=== PATIENT | female | born 1950 | race Caucasian/White ===

== ENCOUNTER 2018-05-05 04:37 | Emergency (ER) | payer MEDICARE, OTHER ==
--- NOTE | 2018-05-05 05:07 | ER Document Report ---
Doctor's Note Notes: 05/05/18 05:05 I performed a quick triage evaluation the patient. Patient is a pleasant 68- year-old female presents with complaint of being weak and actually falling onto the floor because of weakness feeling unwell. Blood sugar was low at 65. Patient says that her blood sugars usually between 115 200 so whenever he gets below 80 she feels very weak like she did tonight. She takes Lantus at night. This dose has not recently changed. She is on metformin during the day but says her doctor recently decreased the metformin because her sugars were starting to get low. She also does a sliding scale insulin during the day. No recent fevers or infections. She denies hitting her head and she denies headache. She is on Plavix. She does have some bruising and pain along the left upper arm. She denies any hip pain. No abdominal pain. No chest pain. Avoid based on labs. Will check urine to make sure is no evidence of infection. Will keep an eye on her glucose to make sure it remains normalized. Her blood sugar did come up after eating peanut butter sandwich at home and this has made her feel much improved. Dictation of this chart was performed using voice recognition software; therefore, there may be some unintended grammatical errors.
[2018-05-05 05:34] LABS: ABSOLUTE EOSINOPHILS # (AUTO) 0.1 10^3/uL (0.0-0.6); ABSOLUTE MONOCYTES (AUTO) 1.1 10^3/uL (0.1-1.4); ABSOLUTE NEUT (AUTO) 17.1 10^3/uL (1.7-8.2); BASOPHILS % (AUTO) 0.1 % (0-2); EOSINOPHILS % (AUTO) 0.3 % (0-6); HEMATOCRIT 38.3 % (36.0-47.0); HEMOGLOBIN 12.5 g/dL (12.0-15.5); LYMPHOCYTES % (AUTO) 5.3 % (13-45); MEAN CORPUSCULAR HEMOGLOBIN 27.4 pg (27.0-33.4); MEAN CORPUSCULAR HGB CONC 32.8 g/dL (32.0-36.0); MEAN CORPUSCULAR VOLUME 84 fl (80-97); MONOCYTES % (AUTO) 5.8 % (3-13); PLATELET COUNT 272 10^3/uL (150-450); RED BLOOD COUNT 4.57 10^6/uL (3.72-5.28); RED CELL DISTRIBUTION WIDTH 15.8 % (11.5-14.0); SEGMENTED NEUTROPHILS % (AUTO) 88.5 % (42-78); TOTAL CELLS COUNTED % (AUTO) 100 %; WHITE BLOOD COUNT 19.3 10^3/uL (4.0-10.5)
[2018-05-05 05:42] LABS: ANION GAP 18 (5-19); BLOOD UREA NITROGEN 41 mg/dL (7-20); CALCIUM 9.7 mg/dL (8.4-10.2); CARBON DIOXIDE 25 mmol/L (22-30); CHLORIDE 103 mmol/L (98-107); GLUCOSE 179 mg/dL (75-110); POTASSIUM 4.1 mmol/L (3.6-5.0); SODIUM 146.2 mmol/L (137-145)
--- NOTE | 2018-05-05 06:25 | RADIOLOGY REPORT (SQ) ---
Left humerus two view on 05/05/2018 at 6:23 AM CLINICAL INDICATION: Left arm pain after fall COMPARISON: None FINDINGS: There is mild osteopenia. There are no fractures. Visualized joints are well aligned. Soft tissue swelling is noted in the distal upper arm. No bony abnormality is noted. IMPRESSION: No acute bony abnormality.
--- NOTE | 2018-05-05 07:32 | ER Document Report ---
ED General - General Chief Complaint: Low Blood Sugar Stated Complaint: BLOOD SUGAR ISSUE Time Seen by Provider: 05/05/18 05:04 Mode of Arrival: Wheelchair Information source: Patient, Parent TRAVEL OUTSIDE OF THE [place] IN LAST 30 DAYS: No - HPI Patient complains to provider of: Syncope Onset: Other - [age]-year-old female presents for evaluation of an episode of syncope this morning at which time she was attempting to get out of bed, she subsequently fainted falling in between her dresser and a bed, was unable to get up thereafter, she notes that she was concerned that her blood sugar was low at that time, so checked was 68. He presented for further evaluation, during that time she complained of feeling fatigued generalized shortness of breath which has been progressive over the last several months worse on exertion. She does have a significant history of stent placement in the past as well as what seems like general deconditioning according to her son who notes that she does not get out of a chair for more than a few steps at a time at this point. She denies any chest pain palpitations abdominal pain diarrhea constipation dysuria or other symptoms. She is continued to take all of her normal home medications as usual. She has never had any episodes in the past where she fainted. - Related Data Allergies/Adverse Reactions: No Known Allergies Allergy (Verified 05/05/18 07:22) Past Medical History - General Information source: Patient, Relative - Social History Smoking Status: Never Smoker Frequency of alcohol use: None Family History: CAD Patient has suicidal ideation: No Patient has homicidal ideation: No - Past Medical History Cardiac Medical History: Reports: Hx Hypercholesterolemia, Hx Hypertension Endocrine Medical History: Reports: Hx Diabetes Mellitus Type 2 Renal/ Medical History: Denies: Hx Peritoneal Dialysis Past Surgical History: Reports: Hx Cholecystectomy Review of Systems - Review of Systems -: Yes All other systems reviewed and negative Physical Exam - Vital signs Vitals: Resp Pulse Ox 26 H 92 05/05/18 04:45 05/05/18 04:45 - General General appearance: Other - Chronically ill In distress: None - HEENT Head: Normocephalic Eyes: Normal Conjunctiva: Normal Cornea: Normal Eyelashes: Normal Pupils: PERRL Nasal: Normal Mouth/Lips: Normal - Respiratory Respiratory status: Tachypnea Chest status: Nontender Breath sounds: Normal Chest palpation: Normal - Cardiovascular Rhythm: Bradycardia Heart sounds: Normal auscultation Murmur: No - Abdominal Inspection: Normal Distension: No distension Tenderness: Nontender - Back Back: Normal - Extremities General upper extremity: Normal inspection, Normal ROM General lower extremity: Normal inspection, Normal ROM - Neurological Neuro grossly intact: Yes Cognition: Normal Orientation: AAOx4 [place] Coma Scale Eye Opening: Spontaneous [place] Coma Scale Verbal: Oriented Jm Coma Scale Motor: Obeys Commands [place] Coma Scale Total: 15 - Psychological Associated symptoms: Normal affect Course - Re-evaluation Re-evalutation: 05/05/18 10:30 68-year-old female with past medical history significant for known CAD as well as hyperlipidemia hypertension and diabetes that presents for evaluation of syncope today when attempting to get out of bed earlier this morning. Thought that may be related to low blood sugar which time she checked it was in the 68 range. On evaluation the patient has an EKG which demonstrates what appears to be a junctional escape rhythm, her heart rate is 38. Immediately evaluated patient at the bedside, she is currently hemodynamically stable, her heart rate is in the low 70s. She does have a history of paroxysmal atrial fibrillation and is on both metoprolol as well as diltiazem. Did not take either of these this morning. Intermittently she does oscillate to lower her heart rate between 40 and 50. While evaluating patient with heart rate between 40 and 50 she remains asymptomatic. She does have modest shortness of breath currently on 2 L nasal cannula. Spoke to the hospitalist about potential admission here for monitoring and evaluation of potential syncope CHF. They declined at this time noting that we do not have on-call cardiology as her result would be concerning potentially for this patient to stay in house without any interventional list given her bradycardia. Believe this is reasonable at this time, we will proceed with consideration of transfer. Contacted on-call transfer line at [facility]. Will contact publicity manager, have discussed case with hospitalist who agrees to transfer and admission of this patient at this time, currently she does have recurrent bradycardia with a heart rate in the low 40s though she is not exhibiting symptoms while at rest, she has normal blood pressure. Given that she is got well appearance overall will defer external pacing or administration of vasopressor. We will plan for repeat EKG. Patient to be transferred, will be transferred by ALS to [facility], will plan for current cardiac monitoring. Patient transfer to [facility], currently hemodynamically stable at this time. To the care of Dr. WHITTINGTON. - Vital Signs Vital signs: Temp Pulse Resp BP Pulse Ox 97.9 F 18 139/67 H 100 05/05/18 11:01 05/05/18 11:01 05/05/18 11:01 05/05/18 11:01 - Laboratory Result Diagrams: 05/05/18 05:15 05/05/18 05:15 Laboratory results interpreted by me: 05/05/18 05/05/18 05/05/18 04:55 05:15 05:15 WBC 19.3 H RDW 15.8 H Seg Neutrophils % 88.5 H Lymphocytes % 5.3 L Absolute Neutrophils 17.1 H Sodium 146.2 H BUN 41 H Est GFR ( Amer) 52 L Est GFR (Non-Af Amer) 43 L Glucose 179 H POC Glucose 204 H Urine Protein Urine Glucose (UA) Urine Urobilinogen Ur Leukocyte Esterase 05/05/18 05/05/18 06:23 08:15 WBC RDW Seg Neutrophils % Lymphocytes % Absolute Neutrophils Sodium BUN Est GFR ( Amer) Est GFR (Non-Af Amer) Glucose POC Glucose 270 H Urine Protein 30 H Urine Glucose (UA) 50 H Urine Urobilinogen 2.0 H Ur Leukocyte Esterase LARGE H Critical Care Note - Critical Care Note Total time excluding time spent on procedures (mins): 35 Discharge - Discharge Clinical Impression: Bradycardia Syncope Qualifiers: Syncope type: unspecified Qualified Code(s): R55 - Syncope and collapse Condition: Serious Disposition: [facility]
[2018-05-05 07:40] LABS: CREATINE KINASE MB 1.29 ng/mL (<4.55); TROPONIN I 0.027 ng/mL
--- NOTE | 2018-05-05 08:23 | RADIOLOGY REPORT (SQ) ---
EXAM DESCRIPTION: CHEST 2 VIEWS COMPLETED DATE/TIME: 05/05/2018 7:35 am REASON FOR STUDY: concern for pulmonary edema COMPARISON: None. NUMBER OF VIEWS: Two view. TECHNIQUE: Frontal and lateral radiographic views of the chest acquired. LIMITATIONS: None. FINDINGS: LUNGS AND PLEURA: No opacities, masses or pneumothorax. No pleural effusion. MEDIASTINUM AND HILAR STRUCTURES: No masses. No contour abnormalities. HEART AND VASCULAR STRUCTURES: Heart enlarged without failure. Aorta normal for age. BONES: No acute findings. HARDWARE: None in the chest. OTHER: No other significant finding. IMPRESSION: CARDIAC ENLARGEMENT WITHOUT FAILURE. TECHNICAL DOCUMENTATION: JOB ID: [id number] [employer]- All Rights Reserved Reading location - IP/workstation name: [email or web address]
[2018-05-05 08:48] LABS: APPEARANCE,URINE CLOUDY; BILIRUBIN,URINE NEGATIVE (NEGATIVE); COLOR,URINE RED; GLUCOSE, URINE 50 mg/dL (NEGATIVE); KETONES,URINE NEGATIVE (NEGATIVE); LEUKOCYTE ESTERASE,URINE LARGE (NEGATIVE); NITRITE,URINE NEGATIVE (NEGATIVE); PROTEIN,URINE 30 mg/dL (NEGATIVE); URINE SPECIFIC GRAVITY 1.018
[2018-05-05 12:28] VITALS: BP 146/59
--- NOTE | 2018-05-05 13:05 | EKG REPORT ---
SEVERITY:- ABNORMAL ECG - ACCELERATED JUNCTIONAL ESCAPE RHYTHM : Confirmed by: Bobby Vasques MD 05-May-2018 13:04:42
--- NOTE | 2018-05-05 13:05 | EKG REPORT ---
SEVERITY:- ABNORMAL ECG - JUNCTIONAL ESCAPE RHYTHM : Confirmed by: Bobby Vasques MD 05-May-2018 13:04:54
== END 2018-05-05 12:10 | disposition short-term general hospital (02) ==
LOC: ER 04:37
DX: R00.1 Bradycardia, unspecified (principal); R55 Syncope and collapse; E11.649 Type 2 diabetes mellitus with hypoglycemia without coma; W06.XXXA Fall from bed, initial encounter; I10 Essential (primary) hypertension
CPT/HCPCS: 36415; 71046; 80048; 81001; 82550; 82553; 82962; 83880; 84484; 85025; 93005; 93010; 99285

== ENCOUNTER 2019-07-21 09:31 | Inpatient (IN) | payer MEDICARE, OTHER ==
[2019-07-21] MEDS ORDERED: ONDANSETRON HCL INJ/PF 4 MG/2 ML SDV IV ONE ×2 (09:35→11:06)
--- NOTE | 2019-07-21 09:37 | ER Document Report ---
ED Medical Screen (RME) - General Chief Complaint: Vomiting Stated Complaint: VOMITING Time Seen by Provider: 07/21/19 09:31 Mode of Arrival: Ambulatory Information source: Patient Notes: This 69-year-old female with history of diabetes and A. fib presents to the emergency department with complaints of vomiting. She reports symptoms started she felt better on Monday symptoms return Monday. Reports decreased p.o. intake. She also reports she had some upper abdominal pain earlier no pain today. Reports last Accu-Chek was 287 with no p.o. intake today.. I have greeted and performed a rapid initial assessment of this patient. A comprehensive ED assessment and evaluation of the patient, analysis of test results and completion of the medical decision making process will be conducted by additional ED providers. Dictation of this chart was performed using voice recognition software; therefore, there may be some unintended grammatical errors. TRAVEL OUTSIDE OF THE [place] IN LAST 30 DAYS: No - Related Data Allergies/Adverse Reactions: No Known Allergies Allergy (Verified 05/05/18 07:22) Home Medications: Eliquis Past Medical History - Social History Chew tobacco use (# tins/day): No Frequency of alcohol use: None Drug Abuse: None - Past Medical History Cardiac Medical History: Reports: Hx Hypercholesterolemia, Hx Hypertension Endocrine Medical History: Reports: Hx Diabetes Mellitus Type 2 Renal/ Medical History: Denies: Hx Peritoneal Dialysis Past Surgical History: Reports: Hx Cholecystectomy
[2019-07-21 10:43] LABS: VENOUS BLOOD BASE EXCESS -1.5 mmol/L; VENOUS BLOOD HCO3 21.4 mmol/L (20-32); VENOUS BLOOD PCO2 31.1 mmHg (35-63); VENOUS BLOOD PH 7.46 (7.30-7.42)
[2019-07-21 10:46] LABS: HEMATOCRIT 43.2 % (36.0-47.0); HEMOGLOBIN 14.2 g/dL (12.0-15.5); MEAN CORPUSCULAR HEMOGLOBIN 28.2 pg (27.0-33.4); MEAN CORPUSCULAR VOLUME 86 fl (80-97); PLATELET COUNT 262 10^3/uL (150-450); RED BLOOD COUNT 5.04 10^6/uL (3.72-5.28); RED CELL DISTRIBUTION WIDTH 14.5 % (11.5-14.0); WHITE BLOOD COUNT 12.7 10^3/uL (4.0-10.5)
[2019-07-21 11:04] LABS: ALBUMIN 4.6 g/dL (3.5-5.0); ALKALINE PHOSPHATASE 90 U/L (38-126); ASPARTATE AMINO TRANSFERASE 22 U/L (14-36); BILIRUBIN,DIRECT 0.3 mg/dL (0.0-0.4); BILIRUBIN,TOTAL 0.8 mg/dL (0.2-1.3); BLOOD UREA NITROGEN 24 mg/dL (7-20); CALCIUM 9.5 mg/dL (8.4-10.2); CARBON DIOXIDE 18 mmol/L (22-30); GLUCOSE 350 mg/dL (75-110); TOTAL PROTEIN 8.5 g/dL (6.3-8.2)
[2019-07-21 11:09] LABS: ANION GAP 26 (5-19); CHLORIDE 98 mmol/L (98-107)
--- NOTE | 2019-07-21 11:15 | EKG REPORT ---
SEVERITY:- ABNORMAL ECG - WANDERING PACEMAKER BORDERLINE LEFT AXIS DEVIATION NONSPECIFIC T ABNORMALITIES, DIFFUSE LEADS : Confirmed by: Melody Guido MD 21-Jul-2019 11:14:13
[2019-07-21 11:26] LABS: ABSOLUTE LYMPHOCYTES# (MANUAL) 0.5 10^3/uL (0.5-4.7); ABSOLUTE MONOCYTES # (MANUAL) 0.6 10^3/uL (0.1-1.4); BASOPHILS % (MANUAL) 0 % (0-2); EOSINOPHILS % (MANUAL) 0 % (0-6); LYMPHOCYTES % (MANUAL) 4 % (13-45); MONOCYTES % (MANUAL) 5 % (3-13); SEGMENTED NEUTROPHILS % (MAN) 91 % (42-78); TOTAL CELLS COUNTED 100
[2019-07-21 11:27] LABS: ANISOCYTOSIS SLIGHT; PLATELET COMMENT ADEQUATE
[2019-07-21] MEDS ORDERED: PROMETHAZINE HCL INJ 25 MG/1 ML VIAL IV ONE (12:11)
[2019-07-21] MEDS ORDERED: NORMAL SALINE 500 ML IV ONE (12:22)
--- NOTE | 2019-07-21 13:12 | RADIOLOGY REPORT (SQ) ---
EXAM DESCRIPTION: CT ABD/PELVIS WITH IV ONLY COMPLETED DATE/TIME: 07/21/2019 12:20 pm REASON FOR STUDY: EPIGASTRIC PAIN, VOMITING, H/O PANCREATITIS COMPARISON: None. TECHNIQUE: CT scan of the abdomen and pelvis performed using helical scanning technique with dynamic intravenous contrast injection. No oral contrast. Images reviewed with lung, soft tissue, and bone windows. Reconstructed coronal and sagittal MPR images reviewed. Delayed images for evaluation of the urinary system also acquired. All images stored on PACS. All CT scanners at this facility use dose modulation, iterative reconstruction, and/or weight based d osing when appropriate to reduce radiation dose to as low as reasonably achievable (ALARA). [facility]: Dose Right [facility]: CareDose [facility]: Dose Right [facility]: Teradose 4D [facility]: Zet Universe CONTRAST TYPE AND DOSE: contrast/concentration: Isovue 350.00 mg/ml; Total Contrast Delivered: 100.0 ml; Total Saline Delivered: 72.0 ml RENAL FUNCTION: Creatinine 1.25 RADIATION DOSE: CT Rad equipment meets quality standard of care and radiation dose reduction techniq ues were employed. CTDIvol: 19.9 - 20.8 mGy. DLP: 2261 mGy-cm.. LIMITATIONS: Motion artifact ne. FINDINGS: LOWER CHEST: No consolidation or pleural effusion. Coronary arteries calcifications are n oted. LIVER: Normal size. No masses. No dilated ducts. SPLEEN: Normal size. PANCREAS: There is mild soft tissue stranding in the region of the pancreatic head/ uncinate process. No significant calcifications. No adjacent peripancreatic fluid collections. Pancreatic duct not di lated. GALLBLADDER: Surgically absent. ADRENAL GLANDS: No significant masses or asymmetry. RIGHT KIDNEY AND URETER: No solid masses. No significant calcifications. No hydronephrosis or hyd roureter. LEFT KIDNEY AND URETER: No solid masses. No significant calcifications. No hydronephrosis or hydr oureter. 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 AORTA AND VESSELS: Atherosclerotic calcifications at the abdominal aorta and its branches. No abdomi nal aortic aneurysm. RETROPERITONEUM: No retroperitoneal adenopathy, hemorrhage or masses. BOWEL AND PERITONEAL CAVITY: No dilated bowel loops or inflammatory changes. No free fluid or free ai r. There is colonic diverticulosis with no CT evidence for acute diverticulitis. APPENDIX: Not visualized. PELVIS: The uterus is present. There is a 2.3 cm cystic lesion at the right adnexa and a 1.8 cm cyst ic lesion at the left adnexa. No free fluid. Partially distended bladder. ABDOMINAL WALL: Small fat containing umbilical hernia. Multiple surgical clips are noted within the right anterior abdominal wall. BONES: Degenerative changes at the spine. IMPRESSION: 1. Mild soft tissue stranding in the region of the pancreatic head/ uncinate process, ma y represent chronic change versus acute pancreatitis. Please correlate with lipase level. 2. Colonic diverticulosis. 3. 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 4. Cystic lesions at the bilateral adnexal regions. Nonemergent pelvic ultrasound recommended for fu rther characterisation. TECHNICAL DOCUMENTATION: JOB ID: [id number] Quality ID # [id number]: Final reports with documentation of one or more dose reduction techniques (e.g., Au tomated exposure control, adjustment of the mA and/or kV according to patient size, use of iterative reconstruction technique) 2010 [employer]- All Rights Reserved Reading location - IP/workstation name: [email or web address]
--- NOTE | 2019-07-21 14:31 | ER Document Report ---
Entered by ANA WELCH SCRIBE 07/21/19 1057 Acting as scribe for:DAVE EVANS IV, MD ED GI/ - General Chief Complaint: Vomiting Stated Complaint: VOMITING Time Seen by Provider: 07/21/19 09:31 Mode of Arrival: Ambulatory TRAVEL OUTSIDE OF THE [place] IN LAST 30 DAYS: No - HPI Notes: 69-year-old female with a history of pancreatitis presents complaining of nausea, vomiting, and epigastric pain x3 days. Patient's daughter is present in the room states that the symptoms she is having today are the exact same symptoms she had the last time she had pancreatitis. Patient states she feels the pain in her epigastrium as well as in her back. Patient states she is felt some chills but denies fever. Patient denies change in bowel movements, sick contacts. Patient states she had a stress test done approximately 1 week ago that was reported to be normal. Patient denies alcohol use or new medications. Patient has history of hypertension and has not been able to keep down any of her normal daily medications due to the nausea vomiting and pain. - Related Data Allergies/Adverse Reactions: Sulfa (Sulfonamide Antibiotics) Adverse Reaction (Intermediate, Verified 07/21/19 10:12) VOMITING Home Medications: Eliquis Past Medical History - General Information source: Patient, Relative - Social History Smoking Status: Never Smoker Cigarette use (# per day): No Chew tobacco use (# tins/day): No Frequency of alcohol use: None Drug Abuse: None Lives with: Family Family History: CAD Patient has suicidal ideation: No Patient has homicidal ideation: No - Past Medical History Cardiac Medical History: Reports: Hx Atrial Fibrillation, Hx Hypercholesterolemia, Hx Hypertension Endocrine Medical History: Reports: Hx Diabetes Mellitus Type 2 GI Medical History: Reports: Hx Gastroesophageal Reflux Disease, Hx Pancreatitis Past Surgical History: Reports: Hx Cardiac Catheterization - Stent, Hx Cholecystectomy Review of Systems - Review of Systems Constitutional: No symptoms reported EENT: No symptoms reported Cardiovascular: No symptoms reported Respiratory: No symptoms reported Gastrointestinal: See HPI, Abdominal pain, Nausea, Vomiting Genitourinary: No symptoms reported Female Genitourinary: No symptoms reported Musculoskeletal: No symptoms reported Skin: No symptoms reported Hematologic/Lymphatic: No symptoms reported Neurological/Psychological: No symptoms reported -: Yes All other systems reviewed and negative Physical Exam - Vital signs Vitals: Resp 20 07/21/19 09:43 - Notes Notes: Physical Exam: General: Alert, appears well. HEENT: Normocephalic. Atraumatic. PERRL. Extraocular movements intact. Oropharynx clear. Neck: Supple. Non-tender. Respiratory: No respiratory distress. Clear and equal breath sounds bilaterally. Cardiovascular: Regular rate and rhythm. Abdominal: Mild epigastric tenderness to palpation. no distension. Normal Bowel Sounds. Back: No gross abnormalities. Extremities: Moves all four extremities. Upper extremities: Normal inspection. Normal ROM. Lower extremities: Normal inspection. No edema. Normal ROM. Neurological: Normal cognition. AAOx4. Normal speech. Psychological: Normal affect. Normal Mood. Skin: Warm. Dry. Normal color. Course - Vital Signs Vital signs: Temp Pulse Resp BP Pulse Ox 98.2 F 120 H 17 119/70 97 07/21/19 14:00 07/21/19 09:47 07/21/19 14:59 07/21/19 15:00 07/21/19 14:59 - Laboratory Result Diagrams: 07/21/19 10:16 07/21/19 10:16 Laboratory results interpreted by me: 07/21/19 07/21/19 07/21/19 10:14 10:16 10:16 WBC 12.7 H RDW 14.5 H Seg Neuts % (Manual) 91 H Lymphocytes % (Manual) 4 L Abs Neuts (Manual) 11.6 H VBG pH VBG pCO2 Carbon Dioxide 18 L Anion Gap 26 H BUN 24 H Est GFR ( Amer) 52 L Est GFR (MDRD) Non-Af 43 L Glucose 350 H POC Glucose 340 H Total Protein 8.5 H 07/21/19 10:16 WBC RDW Seg Neuts % (Manual) Lymphocytes % (Manual) Abs Neuts (Manual) VBG pH 7.46 H VBG pCO2 31.1 L Carbon Dioxide Anion Gap BUN Est GFR ( Amer) Est GFR (MDRD) Non-Af Glucose POC Glucose Total Protein - Diagnostic Test Radiology reviewed: Reports reviewed - EKG Interpretation by Me Additional EKG results interpreted by me: 07/21/19 13:29 EKG performed on 07/21/2019 at 0956 hrs. was interpreted by this MD. Findings sinus rhythm, heart rate 98, P waves preceding QRS complexes, QRS complexes appear narrow, ST segments are nonspecific. Impression sinus rhythm with nonspecific ST segments when compared to EKG from 05/05/2018 morphology is grossly similar. - Consults DR. ROSENDO HARKINS Time consulted: 13:32 Reason for consultation: 07/21/19 13:32 PT WITH N/V, EPIGASTRIC PAIN, PANCREATIC INFLAMMATION ON CT Consulted provider: will come to ER Discharge - Discharge Clinical Impression: Acute pancreatitis Condition: Good Disposition: ADMITTED INPATIENT Admitting Provider: Maria (Hospitalist) I personally performed the services described in the documentation, reviewed and edited the documentation which was dictated to the scribe in my presence, and it accurately records my words and actions.
[2019-07-21] MEDS ORDERED: DEXTROSE 40% GEL 15 GM TUBE PO PRN ×2 (14:39)
[2019-07-21] MEDS ORDERED: GLUCAGON,HUMAN RECOMB 1 MG INJ IM PRN (14:39)
[2019-07-21] MEDS ORDERED: DEXTROSE 50%-WATER 25 GM/50 ML DISP.SYRIN IV PRN ×2 (14:39)
--- NOTE | 2019-07-21 14:39 | PDOC H&P ---
History of Present Illness History of Present Illness: TOBIAS DICKSON is a 69 year old female with a history of insulin-dependent diabetes, atrial fibrillation, and coronary artery disease who was in her usual state of health until this past , about 3 days ago, when she started to have some abdominal pain. She said that it was off and on. She started to get a little bit nauseated the next day and threw up a couple of times. She says she has had several loose stools. She has not had a fever that she knows of. She does not think she is been around anyone who is been sick. Her nausea and vomiting got worse today and so she decided to come in. She got 500 cc of IV fluids and antiemetics and she says she now feels better and her abdominal pain and nausea are gone. CT scan of the belly was done which showed some possible mild fat stranding around the head of the pancreas. Gallbladder surgically absent. No evidence of any stones or dilated ducts. She is being admitted for some IV fluids and observation. Past Medical History Cardiac Medical History: Reports: Atrial Fibrillation, Hyperlipidema, Hypertension Endocrine Medical History: Reports: Diabetes Mellitus Type 2 GI Medical History: Reports: Gastroesophageal Reflux Disease Past Surgical History Past Surgical History: Reports: Cardiac Catheterization - Stent, Cholecystectomy Social History Smoking Status: Never Smoker Electronic Cigarette use?: No Family History Family History: CAD Parental Family History Reviewed: Yes Children Family History Reviewed: Yes Sibling(s) Family History Reviewed.: Yes Medication/Allergy Allergies/Adverse Reactions: Sulfa (Sulfonamide Antibiotics) Adverse Reaction (Intermediate, Verified 07/21/19 10:12) VOMITING Review of Systems All systems: reviewed and no additional remarkable complaints except as stated - All systems were reviewed and were negative except as noted in the HPI Physical Exam Vital Signs: Temp Pulse Resp BP Pulse Ox 97.8 F 120 H 24 H 128/68 H 96 07/21/19 09:47 07/21/19 09:47 07/21/19 13:41 07/21/19 13:42 07/21/19 13:41 Intake & Output 07/20/19 07/21/19 07/22/19 06:59 06:59 06:59 Intake Total 500 Balance 500 Weight 110 kg General appearance: PRESENT: no acute distress, cooperative, disheveled, morbidly obese Head exam: PRESENT: atraumatic, normocephalic Eye exam: PRESENT: EOMI, PERRLA. ABSENT: conjunctival injection, nystagmus, scleral icterus Ear exam: PRESENT: normal external ear exam Mouth exam: PRESENT: moist, neck supple Teeth exam: PRESENT: poor dentation Throat exam: ABSENT: post pharyngeal erythema Neck exam: PRESENT: full ROM. ABSENT: carotid bruit, JVD, lymphadenopathy, meningismus, tenderness, thyromegaly Respiratory exam: PRESENT: clear to auscultation delia, symmetrical, unlabored. ABSENT: accessory muscle use, chest wall tenderness, crackles, prolonged expiratory phas, rhonchi, tachypnea, wheezes Cardiovascular exam: PRESENT: irregular rhythm Pulses: PRESENT: normal carotid pulses Vascular exam: PRESENT: normal capillary refill GI/Abdominal exam: PRESENT: normal bowel sounds, soft. ABSENT: distended, guarding, rebound, tenderness Extremities exam: ABSENT: clubbing, pedal edema Musculoskeletal exam: PRESENT: normal inspection. ABSENT: deformity Neurological exam: PRESENT: alert, awake, oriented to person, oriented to place, oriented to time, oriented to situation, CN II-XII grossly intact. ABSENT: motor sensory deficit Psychiatric exam: PRESENT: appropriate affect, normal mood Skin exam: PRESENT: dry, warm Results Laboratory Results: 07/21/19 10:16 07/21/19 10:16 07/21/19 07/21/19 07/21/19 10:16 10:16 10:16 WBC 12.7 H RBC 5.04 Hgb 14.2 Hct 43.2 MCV 86 MCH 28.2 MCHC 33.0 RDW 14.5 H Plt Count 262 Seg Neutrophils % Not Reportable VBG pH 7.46 H VBG pCO2 31.1 L VBG HCO3 21.4 VBG Base Excess -1.5 Sodium 142.4 Potassium 4.0 Chloride 98 Carbon Dioxide 18 L Anion Gap 26 H BUN 24 H Creatinine 1.25 Est GFR ( Amer) 52 L Glucose 350 H Calcium 9.5 Total Bilirubin 0.8 AST 22 Alkaline Phosphatase 90 Total Protein 8.5 H Albumin 4.6 Lipase 07/21/19 10:16 WBC RBC Hgb Hct MCV MCH MCHC RDW Plt Count Seg Neutrophils % VBG pH VBG pCO2 VBG HCO3 VBG Base Excess Sodium Potassium Chloride Carbon Dioxide Anion Gap BUN Creatinine Est GFR ( Amer) Glucose Calcium Total Bilirubin AST Alkaline Phosphatase Total Protein Albumin Lipase 197.6 07/21/19 07/21/19 10:16 12:30 Troponin I 0.052 0.084 Impressions: Abdomen/Pelvis CT 07/21/19 11:07 IMPRESSION: 1. Mild soft tissue stranding in the region of the pancreatic head/ uncinate process, may represent chronic change versus acute pancreatitis. Please correlate with lipase level. 2. Colonic diverticulosis. 3. 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 4. Cystic lesions at the bilateral adnexal regions. Nonemergent pelvic ultrasound recommended for further characterisation. Assessment and Plan - Diagnosis (1) Gastroenteritis Is this a current diagnosis for this admission?: Yes Plan: I am not convinced that this is a pancreatitis. Her lipase was less than 200. Her symptoms started 3 days ago, and the lipase typically rises within 4 to 8 hours, peaks around 24 hours, and can remain elevated for up to 10 days. Considering that her symptoms got worse today, if this was a pancreatitis, we would expect to see the lipase at least elevated above the upper limit of normal. However, hers is normal. I suspect that she has a gastroenteritis, especially since we gave her just a very little amount of IV fluids and some antiemetics and now she has no nausea or abdominal pain. We are going to give a little bit more IV fluids, and this afternoon we will start her on some clear liquids and advance her diet as tolerated. We will repeat a lipase in the [facility] just to see if there is any upward trend. (2) Dehydration Is this a current diagnosis for this admission?: Yes Plan: BUN to creatinine ratio is close to 20-1. We will continue IV fluids and encourage oral hydration. (3) Atrial fibrillation Qualifiers: Atrial fibrillation type: unspecified chronic Qualified Code(s): I48.20 - Chronic atrial fibrillation, unspecified; I48.2 - Chronic atrial fibrillation Is this a current diagnosis for this admission?: Yes Plan: She says she takes metoprolol and Eliquis at home. We will make sure to get those ordered for her here. (4) Insulin dependent diabetes mellitus Is this a current diagnosis for this admission?: Yes Plan: She says she uses Lantus and Humalog at home. We will make sure she is covered with a sliding scale here once we get her home dose of Lantus order will go ahead and give that to her tonight. (5) Coronary artery disease Qualifiers: Coronary Disease-Associated Artery/Lesion type: [place] artery [place] vs. transplanted heart: [place] heart Associated angina: without angina Qualified Code(s): I25.10 - Atherosclerotic heart disease of [place] coronary artery without angina pectoris Is this a current diagnosis for this admission?: Yes Plan: She said that she has had cardiac stents. We will get her home medications continued. We will repeat another troponin this evening. The second 1 was trending up but she is currently without any discomfort at all. No evidence of ischemia on EKG or telemetry. The elevation that we saw was probably from transient supply and demand mismatch associated with her dehydration. - Time Time Spent with patient: 35 or more minutes
[2019-07-21] MEDS: INSULIN LISPRO 100 UNIT/ML 3 ML VIAL SUBCUT SCH ×2 (16:28→21:35)
[2019-07-21] MEDS: NORMAL SALINE 1000 ML 1,000 ML IV PRN (17:23)
[2019-07-21] MEDS ORDERED: INSULIN GLARGINE,HUM.REC.ANLOG 1,000 UNIT/10 ML VIAL (PYX) SUBCUT PRN (21:24)
[2019-07-21] MEDS: INSULIN GLARGINE,HUM.REC.ANLOG 1,000 UNIT/10 ML VIAL SUBCUT SCH (21:35)
[2019-07-21] MEDS: PANTOPRAZOLE SODIUM 40 MG VIAL IV SCH (21:47)
[2019-07-21] MEDS: ATORVASTATIN CALCIUM 40 MG TABLET PO SCH (21:48)
[2019-07-21] MEDS: METOPROLOL TARTRATE 50 MG TABLET PO SCH (21:48)
[2019-07-21] MEDS ORDERED: LOSARTAN POTASSIUM 50 MG TABLET PO SCH (22:00)
[2019-07-22] MEDS: NORMAL SALINE 1000 ML 1,000 ML IV PRN ×3 (02:30→19:45)
[2019-07-22] MEDS: LEVOTHYROXINE SODIUM 0.05 MG TABLET PO SCH (06:05)
[2019-07-22 07:10] LABS: HEMATOCRIT 40.4 % (36.0-47.0); HEMOGLOBIN 13.2 g/dL (12.0-15.5); MEAN CORPUSCULAR HGB CONC 32.7 g/dL (32.0-36.0); MEAN CORPUSCULAR VOLUME 86 fl (80-97); PLATELET COUNT 208 10^3/uL (150-450); RED BLOOD COUNT 4.72 10^6/uL (3.72-5.28); RED CELL DISTRIBUTION WIDTH 14.7 % (11.5-14.0); WHITE BLOOD COUNT 11.9 10^3/uL (4.0-10.5)
[2019-07-22 07:19] LABS: ANION GAP 15 (5-19); BLOOD UREA NITROGEN 34 mg/dL (7-20); CALCIUM 8.6 mg/dL (8.4-10.2); CARBON DIOXIDE 23 mmol/L (22-30); CHLORIDE 107 mmol/L (98-107); GLUCOSE 93 mg/dL (75-110); POTASSIUM 4.1 mmol/L (3.6-5.0)
[2019-07-22] MEDS: INSULIN LISPRO 100 UNIT/ML 3 ML VIAL SUBCUT SCH ×4 (07:30→21:30)
[2019-07-22 07:33] LABS: CREATINE KINASE MB 2.55 ng/mL (<4.55); TROPONIN I 0.158 ng/mL
[2019-07-22] MEDS ORDERED: METFORMIN HCL 500 MG TABLET PO SCH (08:00)
[2019-07-22] MEDS: ONDANSETRON HCL INJ/PF 4 MG/2 ML SDV IV PRN ×2 (08:25→13:49)
[2019-07-22] MEDS: ASPIRIN 81 MG TABLET, ENT COATED PO SCH (09:29)
[2019-07-22] MEDS: CHOLECALCIFEROL (D3) 1,000 UNIT (25 MCG) TABLET PO SCH (09:30)
[2019-07-22] MEDS: MAGNESIUM OXIDE 400 MG TABLET PO SCH (09:30)
[2019-07-22] MEDS ORDERED: FUROSEMIDE 20 MG TABLET PO SCH (10:00)
[2019-07-22] MEDS ORDERED: METOCLOPRAMIDE HCL INJ/PF 10 MG/2 ML SDV IV PRN (10:01)
[2019-07-22] MEDS: PANTOPRAZOLE SODIUM 40 MG VIAL IV SCH ×2 (10:29→21:24)
[2019-07-22] MEDS: METOPROLOL TARTRATE 50 MG TABLET PO SCH ×2 (11:02→21:23)
[2019-07-22] MEDS: ESCITALOPRAM OXALATE 10 MG TABLET PO SCH (11:03)
[2019-07-22] MEDS: APIXABAN 5 MG TABLET PO SCH ×2 (11:03→17:01)
--- NOTE | 2019-07-22 14:50 | PDOC PROGRESS REPORT ---
Subjective Progress Note for:: 07/22/19 Subjective:: No adverse events overnight. Nausea had returned today but still no abdominal pain. No chest pain or shortness of breath. Creatinine went up despite IV fluids after she got contrast with a CT yesterday. Reason For Visit: NAUSEA/VOMITING/DEHYDRATION Physical Exam Vital Signs: Temp Pulse Resp BP Pulse Ox 97.4 F 76 17 162/65 H 100 07/22/19 07:52 07/22/19 07:52 07/22/19 07:52 07/22/19 07:52 07/22/19 07:52 Intake & Output 07/21/19 07/22/19 07/23/19 06:59 06:59 06:59 Intake Total 1909 1360 Output Total 0 Balance 1909 1360 Weight 96.9 kg General: No acute distress, disheveled, morbidly obese Respiratory exam: PRESENT: clear to auscultation delia, symmetrical, unlabored. ABSENT: accessory muscle use, chest wall tenderness, crackles, prolonged expiratory phase, rhonchi, tachypnea, wheezes Cardiovascular exam: PRESENT: irregular rhythm Pulses: PRESENT: normal carotid pulses Vascular exam: PRESENT: normal capillary refill GI/Abdominal exam: PRESENT: normal bowel sounds, soft. ABSENT: distended, guarding, rebound, tenderness Extremities exam: ABSENT: clubbing, pedal edema Musculoskeletal exam: PRESENT: normal inspection. ABSENT: deformity Neurological exam: PRESENT: alert, awake, oriented to person, oriented to place, oriented to time, oriented to situation Psychiatric exam: PRESENT: appropriate affect, normal mood Skin exam: PRESENT: dry, warm Results Laboratory Results: 07/22/19 06:25 07/22/19 06:25 07/22/19 07/22/19 07/22/19 06:25 06:25 06:25 WBC 11.9 H RBC 4.72 Hgb 13.2 Hct 40.4 MCV 86 MCH 28.0 MCHC 32.7 RDW 14.7 H Plt Count 208 Sodium 145.4 H Potassium 4.1 Chloride 107 Carbon Dioxide 23 Anion Gap 15 BUN 34 H Creatinine 2.05 H Est GFR ( Amer) 29 L Glucose 93 Calcium 8.6 Lipase 133.1 07/21/19 07/21/19 07/21/19 10:16 12:30 17:45 CK-MB (CK-2) Troponin I 0.052 0.084 0.172 07/22/19 06:25 CK-MB (CK-2) 2.55 Troponin I 0.158 Impressions: Abdomen/Pelvis CT 07/21/19 11:07 IMPRESSION: 1. Mild soft tissue stranding in the region of the pancreatic head/ uncinate process, may represent chronic change versus acute pancreatitis. Please correlate with lipase level. 2. Colonic diverticulosis. 3. 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 4. Cystic lesions at the bilateral adnexal regions. Nonemergent pelvic ultrasound recommended for further characterisation. Assessment and Plan - Diagnosis (1) Gastroenteritis Is this a current diagnosis for this admission?: Yes Plan: Continue with some IV fluids and antiemetics. Have added Reglan because she said the Zofran was not helping as much, and she is a diabetic and so Reglan may be of some benefit for her in the situation. No signs of obstruction on CT. Abdominal exam is benign. Lipase is even lower than it was yesterday. I do not think this is pancreatitis. (2) Dehydration Is this a current diagnosis for this admission?: Yes Plan: Resolving with IV fluids (3) Atrial fibrillation Qualifiers: Atrial fibrillation type: unspecified chronic Qualified Code(s): I48.20 - Chronic atrial fibrillation, unspecified; I48.2 - Chronic atrial fibrillation Is this a current diagnosis for this admission?: Yes Plan: She says she takes metoprolol and Eliquis at home. We will make sure to get those ordered for her here. (4) Insulin dependent diabetes mellitus Is this a current diagnosis for this admission?: Yes Plan: She says she uses Lantus and Humalog at home. We will make sure she is covered with a sliding scale here once we get her home dose of Lantus order will go ahead and give that to her tonight. (5) Coronary artery disease Qualifiers: Coronary Disease-Associated Artery/Lesion type: [place] artery [place] vs. transplanted heart: [place] heart Associated angina: without angina Qualified Code(s): I25.10 - Atherosclerotic heart disease of [place] coronary artery without angina pectoris Is this a current diagnosis for this admission?: Yes Plan: She said that she has had cardiac stents. We will get her home medications continued. We will repeat another troponin this evening. The second 1 was trending up but she is currently without any discomfort at all. No evidence of ischemia on EKG or telemetry. The elevation that we saw was probably from transient supply and demand mismatch associated with her dehydration. (6) Contrast dye induced nephropathy Is this a current diagnosis for this admission?: Yes Plan: She is already a little bit dehydrated her creatinine is up a little bit whenever she got a CT with contrast in the ER, and now her creatinine is elevated. We will continue IV fluids and will hold off on any nephrotoxic medications. - Time Time Spent with patient: 25-34 minutes
[2019-07-22] MEDS: METOCLOPRAMIDE HCL INJ/PF 10 MG/2 ML SDV IV PRN (17:01)
[2019-07-22] MEDS ORDERED: HYDRALAZINE HCL INJ/PF 20 MG/1 ML SDV IV PRN (21:00)
[2019-07-22] MEDS: ATORVASTATIN CALCIUM 40 MG TABLET PO SCH (21:23)
[2019-07-22] MEDS: INSULIN GLARGINE,HUM.REC.ANLOG 1,000 UNIT/10 ML VIAL SUBCUT SCH (21:31)
[2019-07-23] MEDS: NORMAL SALINE 1000 ML 1,000 ML IV PRN ×2 (04:25→13:16)
[2019-07-23] MEDS: LEVOTHYROXINE SODIUM 0.05 MG TABLET PO SCH (05:47)
[2019-07-23] MEDS: INSULIN LISPRO 100 UNIT/ML 3 ML VIAL SUBCUT SCH ×4 (09:32→22:29)
[2019-07-23] MEDS: METOPROLOL TARTRATE 50 MG TABLET PO SCH ×2 (09:33→21:18)
[2019-07-23] MEDS: METOCLOPRAMIDE HCL INJ/PF 10 MG/2 ML SDV IV PRN (09:33)
[2019-07-23] MEDS: ASPIRIN 81 MG TABLET, ENT COATED PO SCH (09:33)
[2019-07-23] MEDS: APIXABAN 5 MG TABLET PO SCH ×2 (09:33→17:11)
[2019-07-23] MEDS: ESCITALOPRAM OXALATE 10 MG TABLET PO SCH (09:33)
[2019-07-23] MEDS: PANTOPRAZOLE SODIUM 40 MG VIAL IV SCH ×2 (09:33→21:18)
[2019-07-23] MEDS: MAGNESIUM OXIDE 400 MG TABLET PO SCH (09:33)
[2019-07-23] MEDS: CHOLECALCIFEROL (D3) 1,000 UNIT (25 MCG) TABLET PO SCH (09:34)
[2019-07-23 15:17] LABS: ANION GAP 12 (5-19); BLOOD UREA NITROGEN 30 mg/dL (7-20); CALCIUM 7.7 mg/dL (8.4-10.2); CARBON DIOXIDE 22 mmol/L (22-30); CHLORIDE 106 mmol/L (98-107); GLUCOSE 195 mg/dL (75-110); POTASSIUM 3.8 mmol/L (3.6-5.0)
--- NOTE | 2019-07-23 16:00 | PDOC PROGRESS REPORT ---
Subjective Progress Note for:: 07/23/19 Subjective:: No adverse events overnight. No new complaints. Vital signs been stable. She says that her nausea is gone and she ate all her breakfast without any problems Reason For Visit: NAUSEA/VOMITING/DEHYDRATION Physical Exam Vital Signs: Temp Pulse Resp BP Pulse Ox 97.8 F 71 18 131/43 H 96 07/23/19 12:20 07/23/19 14:00 07/23/19 12:20 07/23/19 12:20 07/23/19 12:20 Intake & Output 07/22/19 07/23/19 07/24/19 06:59 06:59 06:59 Intake Total 1910 3822 1540 Output Total 0 0 Balance 0 3822 1540 Weight 96.9 kg 99.5 kg General: No acute distress, disheveled, morbidly obese Respiratory exam: PRESENT: clear to auscultation delia, symmetrical, unlabored. ABSENT: accessory muscle use, chest wall tenderness, crackles, prolonged expiratory phase, rhonchi, tachypnea, wheezes Cardiovascular exam: PRESENT: irregular rhythm Pulses: PRESENT: normal carotid pulses Vascular exam: PRESENT: normal capillary refill GI/Abdominal exam: PRESENT: normal bowel sounds, soft. ABSENT: distended, guard ing, rebound, tenderness Extremities exam: ABSENT: clubbing, pedal edema Musculoskeletal exam: PRESENT: normal inspection. ABSENT: deformity Neurological exam: PRESENT: alert, awake, oriented to person, oriented to place, oriented to time, oriented to situation Psychiatric exam: PRESENT: appropriate affect, normal mood Skin exam: PRESENT: dry, warm Results Laboratory Results: 07/22/19 06:25 07/23/19 14:37 07/23/19 14:37 Sodium 140.3 Potassium 3.8 Chloride 106 Carbon Dioxide 22 Anion Gap 12 BUN 30 H Creatinine 1.63 H Est GFR ( Amer) 38 L Glucose 195 H Calcium 7.7 L 07/21/19 07/21/19 07/21/19 10:16 12:30 17:45 CK-MB (CK-2) Troponin I 0.052 0.084 0.172 07/22/19 06:25 CK-MB (CK-2) 2.55 Troponin I 0.158 Impressions: Abdomen/Pelvis CT 07/21/19 11:07 IMPRESSION: 1. Mild soft tissue stranding in the region of the pancreatic head/ uncinate process, may represent chronic change versus acute pancreatitis. Please correlate with lipase level. 2. Colonic diverticulosis. 3. 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 4. Cystic lesions at the bilateral adnexal regions. Nonemergent pelvic ultr asound recommended for further characterisation. Assessment and Plan - Diagnosis (1) Gastroenteritis Is this a current diagnosis for this admission?: Yes Plan: Resolved. Advancing diet. (2) Dehydration Is this a current diagnosis for this admission?: Yes Plan: Resolving with IV fluids (3) Atrial fibrillation Qualifiers: Atrial fibrillation type: unspecified chronic Qualified Code(s): I48.20 - Chronic atrial fibrillation, unspecified; I48.2 - Chronic atrial fibrillation Is this a current diagnosis for this admission?: Yes Plan: She says she takes metoprolol and Eliquis at home. We will make sure to get those ordered for her here. (4) Insulin dependent diabetes mellitus Is this a current diagnosis for this admission?: Yes Plan: She says she uses Lantus and Humalog at home. We will make sure she is covered with a sliding scale here once we get her home dose of Lantus order will go ahead and give that to her tonight. (5) Coronary artery disease Qualifiers: Coronary Disease-Associated Artery/Lesion type: [place] artery [place] vs. transplanted heart: [place] heart Associated angina: without angina Qualified Code(s): I25.10 - Atherosclerotic heart disease of [place] coronary artery [facility] angina pectoris Is this a current diagnosis for this admission?: Yes Plan: She said that she has had cardiac stents. We will get her home medications continued. We will repeat another troponin this evening. The second 1 was trending up but she is currently without any discomfort at all. No evidence of ischemia on EKG or telemetry. The elevation that we saw was probably from transient supply and demand mismatch associated with her dehydration. (6) Contrast dye induced nephropathy Is this a current diagnosis for this admission?: Yes Plan: Creatinine has improved with some IV fluids, will continue fluids and repeat her creatinine today and hopefully stop fluids tomorrow. - Time Time Spent with patient: 15-24 minutes
[2019-07-23] MEDS: ATORVASTATIN CALCIUM 40 MG TABLET PO SCH (21:18)
[2019-07-23] MEDS: INSULIN GLARGINE,HUM.REC.ANLOG 1,000 UNIT/10 ML VIAL SUBCUT SCH (22:29)
[2019-07-24] MEDS: LEVOTHYROXINE SODIUM 0.05 MG TABLET PO SCH (05:36)
[2019-07-24] MEDS: INSULIN LISPRO 100 UNIT/ML 3 ML VIAL SUBCUT SCH ×2 (09:02→13:10)
[2019-07-24] MEDS: NORMAL SALINE 1000 ML 1,000 ML IV PRN (09:06)
[2019-07-24] MEDS: ESCITALOPRAM OXALATE 10 MG TABLET PO SCH (10:25)
[2019-07-24] MEDS: CHOLECALCIFEROL (D3) 1,000 UNIT (25 MCG) TABLET PO SCH (10:25)
[2019-07-24] MEDS: MAGNESIUM OXIDE 400 MG TABLET PO SCH (10:26)
[2019-07-24] MEDS: METOPROLOL TARTRATE 50 MG TABLET PO SCH (10:26)
[2019-07-24] MEDS: APIXABAN 5 MG TABLET PO SCH (10:27)
[2019-07-24] MEDS: PANTOPRAZOLE SODIUM 40 MG VIAL IV SCH (10:27)
[2019-07-24] MEDS: ASPIRIN 81 MG TABLET, ENT COATED PO SCH (10:29)
[2019-07-24 11:05] LABS: ANION GAP 13 (5-19); BLOOD UREA NITROGEN 29 mg/dL (7-20); CARBON DIOXIDE 21 mmol/L (22-30); CHLORIDE 107 mmol/L (98-107); GLUCOSE 296 mg/dL (75-110); POTASSIUM 4.2 mmol/L (3.6-5.0)
[2019-07-24 17:05] VITALS: BP 150/69
--- NOTE | 2019-07-24 19:01 | PDOC DISCHARGE SUMMARY ---
Impression - Admit/DC Date/PCP Admission Date/Primary Care Provider: 07/21/19 17:14 Discharge Date: 07/24/19 - Discharge Diagnosis (1) Gastroenteritis Is this a current diagnosis for this admission?: Yes (2) Dehydration Is this a current diagnosis for this admission?: Yes (3) Atrial fibrillation Is this a current diagnosis for this admission?: Yes (4) Insulin dependent diabetes mellitus Is this a current diagnosis for this admission?: Yes (5) Coronary artery disease Is this a current diagnosis for this admission?: Yes (6) Contrast dye induced nephropathy Is this a current diagnosis for this admission?: Yes - Additional Information Resuscitation Status: Full Code Discharge Diet: Cardiac, Diabetic Discharge Activity: Activity As Tolerated Referrals: SIMIN ALRLED NP [NO LOCAL MD] - 08/12/19 9:00 am (Earliest appointment due to holiday is 08/12/19 @ 9 but office will call if earlier appointment becomes available.) Home Medications: Apixaban [Eliquis 5 mg Tablet] 5 mg PO BID 07/21/19 Atorvastatin Calcium [Lipitor 40 mg Tablet] 40 mg PO QHS 07/21/19 Cholecalciferol (Vitamin D3) [Vitamin D3 1000 Unit Tablet] 2,000 unit PO DAILY 07/21/19 Escitalopram Oxalate [Lexapro] 20 mg PO DAILY 07/21/19 Furosemide [Lasix 20 mg Tablet] 20 mg PO DAILY 07/21/19 Insulin Aspart [Novolog] 0 unit SQ .SLIDING SCALE 07/21/19 Insulin Glargine,Hum.rec.anlog [Lantus Insulin 100 Unit/1 ml 10 ml] 50 unit SUBCUT QHS 07/21/19 Levothyroxine Sodium [Synthroid 0.05 mg Tablet] 50 mcg PO Q6AM 07/21/19 Losartan Potassium [Cozaar 50 mg Tablet] 50 mg PO Q12 07/21/19 Magnesium Oxide [Mag-Ox 400 mg Tablet] 400 mg PO DAILY 07/21/19 Metformin HCl [Glucophage 500 mg Tablet] 1,000 mg PO BIDACBS 07/21/19 Metoprolol Tartrate [Lopressor 50 mg Tablet] 25 mg PO Q12 07/21/19 Omeprazole 20 mg PO DAILY 07/21/19 History of Present Illiness History of Present Illness: TOBIAS DICKSON is a 69 year old female with a history of insulin-dependent diabetes, atrial fibrillation, and coronary artery disease who was in her usual state of health until this past , about 3 days ago, when she started to have some abdominal pain. She said that it was off and on. She started to get a little bit nauseated the next day and threw up a couple of times. She says she has had several loose stools. She has not had a fever that she knows of. She does not think she is been around anyone who is been sick. Her nausea and vomiting got worse today and so she decided to come in. She got 500 cc of IV fluids and antiemetics and she says she now feels better and her abdominal pain and nausea are gone. CT scan of the belly was done which showed some possible mild fat stranding around the head of the pancreas. Gallbladder surgically absent. No evidence of any stones or dilated ducts. She is being admitted for some IV fluids and observation. Hospital Course Hospital Course: This patient never had a pancreatitis. Her symptoms were all from a gastroenteritis which is now resolved. She had a CT scan to evaluate her abdominal pain, in the setting of dehydration she got IV contrast, which gave her contrast-induced nephropathy. Fortunately, aggressive hydration was able to attenuate and negative effect of it. Her creatinine was trending down and was pretty close to her normal whenever she was discharged. She was eating and drinking without difficulty and not having any more vomiting or diarrhea. She will continue on her home medications. Her labs and examination were reassuring she was discharged in stable condition. Physical Exam Vital Signs: Temp Pulse Resp BP Pulse Ox 97.6 F 60 16 166/68 H 97 07/24/19 16:35 07/24/19 16:35 07/24/19 16:35 07/24/19 16:35 07/24/19 16:35 Intake & Output 07/23/19 07/24/19 07/25/19 06:59 06:59 06:59 Intake Total 3822 3340 740 Output Total 0 Balance 3822 3340 740 Weight 99.5 kg 98.8 kg General: No acute distress, disheveled, morbidly obese Respiratory exam: PRESENT: clear to auscultation delia, symmetrical, unlabored. ABSENT: accessory muscle use, chest wall tenderness, crackles, prolonged expiratory phase, rhonchi, tachypnea, wheezes Cardiovascular exam: PRESENT: irregular rhythm Pulses: PRESENT: normal carotid pulses Vascular exam: PRESENT: normal capillary refill GI/Abdominal exam: PRESENT: normal bowel sounds, soft. ABSENT: distended, guarding, rebound, tenderness Extremities exam: ABSENT: clubbing, pedal edema Musculoskeletal exam: PRESENT: normal inspection. ABSENT: deformity Neurological exam: PRESENT: alert, awake, oriented to person, oriented to place, oriented to time, oriented to situation Psychiatric exam: PRESENT: appropriate affect, normal mood Skin exam: PRESENT: dry, warm Results Laboratory Results: WBC 11.9 10^3/uL (4.0-10.5) H 07/22/19 06:25 RBC 4.72 10^6/uL (3.72-5.28) 07/22/19 06:25 Hgb 13.2 g/dL (12.0-15.5) 07/22/19 06:25 Hct 40.4 % (36.0-47.0) 07/22/19 06:25 MCV 86 fl (80-97) 07/22/19 06:25 MCH 28.0 pg (27.0-33.4) 07/22/19 06:25 MCHC 32.7 g/dL (32.0-36.0) 07/22/19 06:25 RDW 14.7 % (11.5-14.0) H 07/22/19 06:25 Plt Count 208 10^3/uL (150-450) 07/22/19 06:25 Lymph % (Auto) Not Reportable 07/21/19 10:16 [place] % (Auto) Not Reportable 07/21/19 10:16 Eos % (Auto) Not Reportable 07/21/19 10:16 Baso % (Auto) Not Reportable 07/21/19 10:16 Absolute Neuts (auto) Not Reportable 07/21/19 10:16 Absolute Lymphs (auto) Not Reportable 07/21/19 10:16 Absolute Monos (auto) Not Reportable 07/21/19 10:16 Absolute Eos (auto) Not Reportable 07/21/19 10:16 Absolute Basos (auto) Not Reportable 07/21/19 10:16 Total Counted 100 07/21/19 10:16 Seg Neutrophils % Not Reportable 07/21/19 10:16 Seg Neuts % (Manual) 91 % (42-78) H 07/21/19 10:16 Lymphocytes % (Manual) 4 % (13-45) L 07/21/19 10:16 Monocytes % (Manual) 5 % (3-13) 07/21/19 10:16 Eosinophils % (Manual) 0 % (0-6) 07/21/19 10:16 Basophils % (Manual) 0 % (0-2) 07/21/19 10:16 Abs Neuts (Manual) 11.6 10^3/uL (1.7-8.2) H 07/21/19 10:16 Abs Lymphs (Manual) 0.5 10^3/uL (0.5-4.7) 07/21/19 10:16 Abs Monocytes (Manual) 0.6 10^3/uL (0.1-1.4) 07/21/19 10:16 Absolute Eos (Manual) 0.0 10^3/uL (0.0-0.6) 07/21/19 10:16 Abs Basophils (Manual) 0.0 10^3/uL (0.0-0.2) 07/21/19 10:16 Platelet Comment ADEQUATE 07/21/19 10:16 Anisocytosis SLIGHT 07/21/19 10:16 VBG pH 7.46 (7.30-7.42) H 07/21/19 10:16 VBG pCO2 31.1 mmHg (35-63) L 07/21/19 10:16 VBG HCO3 21.4 mmol/L (20-32) 07/21/19 10:16 VBG Base Excess -1.5 mmol/L 07/21/19 10:16 Sodium 140.7 mmol/L (137-145) 07/24/19 10:30 Potassium 4.2 mmol/L (3.6-5.0) 07/24/19 10:30 Chloride 107 mmol/L (98-107) 07/24/19 10:30 Carbon Dioxide 21 mmol/L (22-30) L 07/24/19 10:30 Anion Gap 13 (5-19) 07/24/19 10:30 BUN 29 mg/dL (7-20) H 07/24/19 10:30 Creatinine 1.38 mg/dL (0.52-1.25) H 07/24/19 10:30 Est GFR ( Amer) 46 (>60) L 07/24/19 10:30 Est GFR (MDRD) Non-Af 38 (>60) L 07/24/19 10:30 Glucose 296 mg/dL (75-110) H 07/24/19 10:30 POC Glucose 221 mg/dL (70-110) H 07/24/19 16:34 Calcium 8.0 mg/dL (8.4-10.2) L 07/24/19 10:30 Total Bilirubin 0.8 mg/dL (0.2-1.3) 07/21/19 10:16 Direct Bilirubin 0.3 mg/dL (0.0-0.4) 07/21/19 10:16 Neonat Total Bilirubin Not Reportable 07/21/19 10:16 Neonat Direct Bilirubin Not Reportable 07/21/19 10:16 Neonat Indirect Bili Not Reportable 07/21/19 10:16 AST 22 U/L (14-36) 07/21/19 10:16 ALT 20 U/L (<35) 07/21/19 10:16 Alkaline Phosphatase 90 U/L (38-126) 07/21/19 10:16 CK-MB (CK-2) 2.55 ng/mL (<4.55) 07/22/19 06:25 Troponin I 0.158 ng/mL 07/22/19 06:25 Total Protein 8.5 g/dL (6.3-8.2) H 07/21/19 10:16 Albumin 4.6 g/dL (3.5-5.0) 07/21/19 10:16 Lipase 133.1 U/L (23-300) 07/22/19 06:25 07/21/19 07/21/19 07/21/19 10:16 12:30 17:45 CK-MB (CK-2) Troponin I 0.052 0.084 0.172 07/22/19 06:25 CK-MB (CK-2) 2.55 Troponin I 0.158 Impressions: Abdomen/Pelvis CT 07/21/19 11:07 IMPRESSION: 1. Mild soft tissue stranding in the region of the pancreatic head/ uncinate process, may represent chronic change versus acute pancreatitis. Please correlate with lipase level. 2. Colonic diverticulosis. 3. 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 4. Cystic lesions at the bilateral adnexal regions. Nonemergent pelvic ultrasound recommended for further characterisation. Plan Time Spent: Greater than 30 Minutes Stroke Is this a Stroke Patient?: No Acute Heart Failure - Is this a Heart Failure Patient?: No
== END 2019-07-24 23:00 | disposition home or self-care (01) | DRG 641 ==
LOC: ER 09:31 → EH 14:38 → 3S 16:10 → OBSVTOIN 17:14
PROVIDERS: ADMIT Family Medicine; ATTEND Family Medicine
DX: E86.0 Dehydration (principal); I48.20 Chronic atrial fibrillation, unspecified; K52.9 Noninfective gastroenteritis and colitis, unspecified; E11.9 Type 2 diabetes mellitus without complications; E66.01 Morbid (severe) obesity due to excess calories; I25.10 Atherosclerotic heart disease of native coronary artery without angina pectoris; E78.5 Hyperlipidemia, unspecified; I10 Essential (primary) hypertension; K21.9 Gastro-esophageal reflux disease without esophagitis; N14.1 Nephropathy induced by other drugs, medicaments and biological substances; T50.8X5A Adverse effect of diagnostic agents, initial encounter; Y92.239 Unspecified place in hospital as the place of occurrence of the external cause; Z79.01 Long term (current) use of anticoagulants; Z79.4 Long term (current) use of insulin; Z95.5 Presence of coronary angioplasty implant and graft; Z82.49 Family history of ischemic heart disease and other diseases of the circulatory system; Z88.2 Allergy status to sulfonamides
CPT/HCPCS: 36415; 74177; 80048; 80053; 82553; 82803; 82962; 83690; 84484; 85025; 85027; 93005; 93010; 96361; 96374; 96375; 96376; 99285; C9113; G0378; J0360; J1815; J2405; J2550; J2765; J3490; J7030; J7040